=== PATIENT | female | born 1965 | race Caucasian/White ===

== ENCOUNTER 2017-06-19 17:35 | Emergency (ER) | payer OTHER ==
[~2017-06-19] VITALS: Ht 157.5 cm; Wt 72.7 kg
[2017-06-19 17:43] VITALS: BP 126/81; PULSE 63; RESP 16; O2SAT 99
--- NOTE | 2017-06-19 19:47 | ED.REPORT ---
HPI-Bite: Human/Animal Date of Service Jun 19, 2017 ED Provider: Austyn Vergara PA-C Susan is an otherwise healthy 51-year-old female presenting for evaluation following an exposure to a bat. Patient states that she slipped on her living room floor last night along with her daughter. When they awoke in the morning they noted a bat in the room. They recall no bites. They consulted with their primary care provider who advised that they present the emergency department. Denies other symptoms including headache, fever, shaking chills, abdominal pain, vomiting, diarrhea. Nursing Notes Stated Complaint: POSSIBLE RABIES EXPOSURE Chief Complaint: General Complaint Nursing Notes Reviewed: Yes Allergies: Uncoded Allergies: SULFA (Allergy, Mild, N/V/D, 06/19/17) General Time Seen by MD: 19:08 Chief Complaint Other (exposure to a bat.) Past Medical History Past Medical History Denies Review of Systems Review of Systems Note: Negative unless stated otherwise in history of present illness Physical Exam General: Well appearing, well developed, well nourished, no acute distress. Head: Atraumatic, normocephalic. Eyes: No scleral icterus or injection. No discharge. Vision grossly intact. ENT: Voice clear, hearing grossly intact. Respiratory: Regular rate and rhythm. Breath sounds present, clear to auscultation and equal bilaterally. No respiratory distress. No increased work of breathing, speaks in complete sentences. Cardiovascular: Regular rate and rhythm, without murmur, gallop or rub. No pedal edema. Gastrointestinal: Abdomen flat and non-tender without guarding or rebound. Bowel sounds normoactive. Skin: Warm and dry. Neurological: Grossly nonfocal. Psychological: Alert and oriented. Speech appropriate, linear and logical. Behavior appropriate. Vital Signs Vital Signs (First) Date Time Temp Pulse Resp B/P Pulse Ox O2 Delivery O2 Flow Rate FiO2 06/19/17 17:43 36.8 63 16 126/81 99 Room Air Re-Eval/Medical Decision Med Decision/Clinical Course Patient is a otherwise healthy 51-year-old female who slept on the floor last night. she and her daughter woke morning to find a contact in the same room with a bat. Advised by primary care to present to the emergency department. They are not aware of any bites, physical examination is benign, vital signs normal. Discussed case with Dr. Harvey who recommends testing of the back, initiation of exposure prophylaxis. Prepared with the help of pharmacy and administered. She is advised to return to the department for repeated doses which are scheduled at day 3, 7 and 14. Advised to take the bat to the health department for testing. Provide emergent return precautions. Patient verbalizes understanding of and consent to the plan. Discharge & Departure Impression: Primary Impression: Contact with and (suspected) exposure to rabies Disposition: Home Discharge Condition All VS Reviewed: Yes Condition: Stable Patient Instructions: Rabies (ED), Rabies Vaccine (DC) Additional Instructions: Evaluation in the emergency department following exposure to a bat includes interview and physical examination. We reviewed the protocols associated with this kind of exposure and have determined that the best course of action is for you to take the bat to the health Department for rabies testing. In the meantime we will initiate treatment for rabies exposure. This evening he has been given rabies immune globulin as well as rabies vaccination. It will be important for you to return to the hospital 3 days from now, 7 days from now and 14 days from now (June 22, and ) for a additional doses of rabies immune globulin. We have been unable to make arrangements at this time for you to be seen in the department other than the emergency department. However, because we would like to avoid repeated ER visits, we are hoping to find another department where he can have these shots administered. The nursing tour production supervisor should contact you early Thursday to discuss this. If you do not hear from them by Thursday evening please contact the emergency department at [phone] and asked to speak to Inga. Return to the emergency department for new or worsening symptoms including low- grade fever, chills, feeling ill, muscle aches, weakness, headache or vomiting. Referrals: Markus Stearns MD (PCP) EDSupervising Provider for APC: Doe Harvey MD copies to: Markus Stearns MD, Seth PA-C Jun 19, 2017 19:47
[2017-06-19] MEDS ORDERED: Rabies Vaccine 2.5 Unit/Kit IM ONE (20:00)
[2017-06-19] MEDS ORDERED: Rabies Immune Globulin 150 Unit/mL 10 mL Inj IM ONE (20:05)
[2017-06-19 22:35] VITALS: BP 123/81; PULSE 75; RESP 18; O2SAT 95
== END 2017-06-19 22:20 | disposition home or self-care (01) ==
LOC: SED 17:35
DX: Z20.3 Contact with and (suspected) exposure to rabies (principal); Z23 Encounter for immunization